=== PATIENT | male | born 1950 | race Caucasian/White ===

== ENCOUNTER 2017-12-23 17:22 | Emergency (ER) | payer BC, SELFPAY ==
[2017-12-23 17:30] VITALS: BP 123/75; PULSE 86; RESP 16; TEMP 36.8; O2SAT 96
[2017-12-23] MEDS: Acetaminophen 325 MG TAB 650 MG PO (17:57)
--- NOTE | 2017-12-23 18:08 | DI.RAD_ITS ---
SYMPTOM/DIAGNOSIS: PAIN, INJURY LEFT FOOT: Three views. No acute fracture or dislocation is seen. There is diffuse osteopenia. There is a moderate hallux valgus deformity. Degenerative changes are present in the spine. Extensive vascular calcifications are present. IMPRESSION: No acute abnormality.
--- NOTE | 2017-12-23 18:38 | W.ED.GENAD ---
Discharge Plan Disposition Patient Disposition: HOME Discharge Details Chief Complaint: Orthopedic Clinical Impression: Sprain of foot, left Primary Care Provider: NONE,NONE ED Provider: Leo Christianson Home Meds and New Rx's Prescriptions: Continue prednisone 5 mg Tablet 5 mg PO DAILY RF: 0 azathioprine 50 mg Tablet 50 mg PO DIRECTED RF: 0 aspirin [Aspir-Low] 81 mg Tablet,Delayed Release (Dr/Ec) 81 mg PO DAILY RF: 0 pantoprazole 40 mg Tablet,Delayed Release (Dr/Ec) 40 mg PO BID RF: 0 tacrolimus 1 mg Capsule,Extended Release 24hr 2 mg PO QPM RF: 0 tacrolimus 1 mg Capsule,Extended Release 24hr 3 mg PO QAM RF: 0 Discharge Instructions Additional Instructions: Take tylenol for pain. Dose according to label. Please use orthopedic shoe for splinting over the next 1-2 weeks. Use crutches and maintain light weightbearing as tolerated. If pain persists or worsens, please follow-up with an communicable disease specialist or dual rate supervisor. Return to the ER for any worsening or new concerning symptoms. Medical Decision Making MDM Narrative Medical decision making narrative: 67-year-old male here with left foot pain, swelling and after twisting mechanism a few hours ago. Tender over through third metatarsal proximally. No ankle tenderness. Neurovascular intact distally. X-ray of the left foot reviewed and interpreted by me: No fracture. Orthopedic shoe and crutches provided. Reviewed discharge instructions with the patient and answered all questions. HPI - General Adult General Date/Time Provider Initiated Documentation: 12/23/17 17:41. Limitations to Documentation: no limitations. Information obtained by: patient. History of Present Illness 67 year old M presents to the emergency department with the chief complaint of foot pain, described as moderate, Quality is described as aching, and is localized to the left (foot). Patient reports no radiation. Patient started experiencing this hour(s) (3) and it has been constant. Other factors that worsen symptoms (ambulation) . Patient did receive the following treatments prior to arrival, none HPI Narrative: Patient notes he tripped on stairs around noon and twisted foot. Pain mild initially. Foot has swelled and now more painful. No pain in ankle. Related Data Home Medications Medication Instructions Recorded Confirmed aspirin [Aspir-Low] 81 mg PO DAILY 12/23/17 12/23/17 azathioprine 50 mg PO DIRECTED 12/23/17 12/23/17 pantoprazole 40 mg PO BID 12/23/17 12/23/17 prednisone 5 mg PO DAILY 12/23/17 12/23/17 tacrolimus 2 mg PO QPM 12/23/17 12/23/17 tacrolimus 3 mg PO QAM 12/23/17 12/23/17 Allergies Allergy/AdvReac Type Severity Reaction Status Date / Time Penicillins Allergy Unverified 12/23/17 17:34 Sulfa (Sulfonamide Allergy Unverified 12/23/17 17:34 Antibiotics) General Stated Complaint: Orthopedic RENO: 4 Review of Systems Musculoskeletal Reports as per HPI and Denies numbness Neurologic Denies numbness PFSH Medical History Renal transplant recipient (Chronic) Social History Smoking/Tobacco Use Status: Never Exam Const Orientation: alert Skin Trauma: no lacerations or abrasions (foot) Extrem Left lower extremity: lower leg Details: no tenderness, ankle Details: normal to inspection and normal ROM; no tenderness and no swelling and foot Details: tenderness Location: of the dorsal foot Location: proximally (1-3 MTs) and motor-sensory exam; no edema Course Vital Signs Temperature 36.8 C 12/23/17 17:30 Pulse 86 12/23/17 17:30 Respiratory Rate 16 12/23/17 17:30 Blood Pressure 123/75 12/23/17 17:30 Pulse Oximetry 96 12/23/17 17:30 Temperature 36.8 C 12/23/17 17:30 Pulse 86 12/23/17 17:30 Respiratory Rate 16 12/23/17 17:30 Blood Pressure 123/75 12/23/17 17:30 Pulse Oximetry 96 12/23/17 17:30
--- NOTE | 2017-12-23 18:39 | DI.VRAD_ITS ---
EXAM: XR Left Foot Complete, 3 or more Views EXAM DATE/TIME: 12/23/2017 6:09 PM CLINICAL HISTORY: 67 years old, male; Pain; Foot; Left; Patient HX: Pain, injury, ttp 1-2 mt's TECHNIQUE: XR Left foot 3 or more views. COMPARISON: No relevant prior studies available. FINDINGS: Bones/joints: There is diffuse osteoporosis. Moderate hallux valgus deformity is present at the first MTP joint. 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 Soft tissues: Normal. Vasculature: Extensive atherosclerotic vascular plaquing is present. IMPRESSION: No acute findings are detected. Dictated and Authenticated by: Prashanth Velásquez MD. Ordering:LORA MEDINA MD
--- NOTE | 2017-12-23 18:43 | ED.GENADUL_ITS ---
Discharge Plan Disposition Patient Disposition: HOME Discharge Details Chief Complaint: Orthopedic Clinical Impression: Sprain of foot, left Primary Care Provider: NONE,NONE ED Provider: Leo Christianson Home Meds and New Rx's Prescriptions: Continue prednisone 5 mg Tablet 5 mg PO DAILY RF: 0 azathioprine 50 mg Tablet 50 mg PO DIRECTED RF: 0 aspirin [Aspir-Low] 81 mg Tablet,Delayed Release (Dr/Ec) 81 mg PO DAILY RF: 0 pantoprazole 40 mg Tablet,Delayed Release (Dr/Ec) 40 mg PO BID RF: 0 tacrolimus 1 mg Capsule,Extended Release 24hr 2 mg PO QPM RF: 0 tacrolimus 1 mg Capsule,Extended Release 24hr 3 mg PO QAM RF: 0 Discharge Instructions Additional Instructions: Take tylenol for pain. Dose according to label. Please use orthopedic shoe for splinting over the next 1-2 weeks. Use crutches and maintain light weightbearing as tolerated. If pain persists or worsens, please follow-up with an information systems security specialist or grab operator. Return to the ER for any worsening or new concerning symptoms. Medical Decision Making MDM Narrative Medical decision making narrative: 67-year-old male here with left foot pain, swelling and after twisting mechanism a few hours ago. Tender over through third metatarsal proximally. No ankle tenderness. Neurovascular intact distally. X-ray of the left foot reviewed and interpreted by me: No fracture. Orthopedic shoe and crutches provided. Reviewed discharge instructions with the patient and answered all questions. HPI - General Adult General Date/Time Provider Initiated Documentation: 12/23/17 17:41 . Limitations to Documentation: no limitations . Information obtained by: patient . History of Present Illness 67 year old M presents to the emergency department with the chief complaint of foot pain, described as moderate, Quality is described as aching, and is localized to the left (foot). Patient reports no radiation. Patient started experiencing this hour(s) (3) and it has been constant. Other factors that worsen symptoms (ambulation) . Patient did receive the following treatments prior to arrival, none HPI Narrative: Patient notes he tripped on stairs around noon and twisted foot. Pain mild initially. Foot has swelled and now more painful. No pain in ankle. Related Data Home Medications Medication Instructions Recorded Confirmed aspirin [Aspir-Low] 81 mg PO DAILY 12/23/17 12/23/17 azathioprine 50 mg PO DIRECTED 12/23/17 12/23/17 pantoprazole 40 mg PO BID 12/23/17 12/23/17 prednisone 5 mg PO DAILY 12/23/17 12/23/17 tacrolimus 2 mg PO QPM 12/23/17 12/23/17 tacrolimus 3 mg PO QAM 12/23/17 12/23/17 Allergies Allergy/AdvReac Type Severity Reaction Status Date / Time Penicillins Allergy Unverified 12/23/17 17:34 Sulfa (Sulfonamide Allergy Unverified 12/23/17 17:34 Antibiotics) General Stated Complaint: Orthopedic RENO: 4 Review of Systems Musculoskeletal Reports as per HPI and Denies numbness Neurologic Denies numbness PFSH Medical History Renal transplant recipient (Chronic) Social History Smoking/Tobacco Use Status: Never Exam Const Orientation: alert Skin Trauma: no lacerations or abrasions (foot) Extrem Left lower extremity: lower leg Details: no tenderness, ankle Details: normal to inspection and normal ROM; no tenderness and no swelling and foot Details: tenderness Location: of the dorsal foot Location: proximally (1-3 MTs) and motor -sensory exam; no edema Course Vital Signs Temperature 36.8 C 12/23/17 17:30 Pulse 86 12/23/17 17:30 Respiratory Rate 16 12/23/17 17:30 Blood Pressure 123/75 12/23/17 17:30 Pulse Oximetry 96 12/23/17 17:30 Temperature 36.8 C 12/23/17 17:30 Pulse 86 12/23/17 17:30 Respiratory Rate 16 12/23/17 17:30 Blood Pressure 123/75 12/23/17 17:30 Pulse Oximetry 96 12/23/17 17:30
[2017-12-23 18:57] VITALS: BP 123/75; PULSE 86; RESP 16; TEMP 36.8; O2SAT 96
== END 2017-12-23 18:58 | disposition home or self-care (01) ==
PROVIDERS: Emergency Provider Student in an Organized Health Care Education/Training Program
DX: S93.602A Unspecified sprain of left foot, initial encounter (principal); W10.8XXA Fall (on) (from) other stairs and steps, initial encounter; X50.9XXA Other and unspecified overexertion or strenuous movements or postures, initial encounter
CPT/HCPCS: 99284; 73630; 99283; E0114